=== PATIENT | male | born 1995 | race Caucasian/White ===

== ENCOUNTER 2018-02-09 23:24 | Inpatient (IN) | payer OTHER ==
[2018-02-09 23:24] VITALS: O2SAT 100
[2018-02-09] MEDS ORDERED: ceFAZolin 2 GM PREMIX 50 ML ONE (23:32)
[2018-02-09] MEDS ORDERED: PROPOFOL 1000 MG/100 ML INJ 100 ML ONE (23:32)
[2018-02-09] MEDS ORDERED: DIPHTH/TETANUS/ACEL PERTUSSIS (BOOSTER) 0.5 ML VIAL/PFS IM ONE ×2 (23:32→23:49)
[2018-02-09 23:35] VITALS: O2SAT 100
[2018-02-09] MEDS ORDERED: ceFAZolin 2 GM/DEX PREMIX 50 ML IV STA (23:45)
[2018-02-09] MEDS ORDERED: SODIUM CHLOR 0.9% 1000 ML INJ 1,000 ML IV ONE (23:45)
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
[2018-02-09 23:51] LABS: BASOPHIL # 0.1 TH/MM3 (0-0.2); EOSINOPHIL # 0.1 TH/MM3 (0-0.4); EOSINOPHIL % 1.4 % (0.0-4.0); HEMATOCRIT 40.9 % (39.0-51.0); HEMOGLOBIN 13.6 GM/DL (13.0-17.0); LYMPH % 22.8 % (9.0-44.0); LYMPHOCYTE # 2.3 TH/MM3 (1.0-4.8); MEAN CELL VOLUME 98.3 FL (80.0-100.0); MEAN CORPUSCULAR HEMOGLOBIN 32.8 PG (27.0-34.0); MEAN CORPUSCULAR HGB CONC 33.4 % (32.0-36.0); MEAN PLATELET VOLUME 9.3 FL (7.0-11.0); MONO % 6.2 % (0.0-8.0); MONOCYTE # 0.6 TH/MM3 (0-0.9); NEUT % 68.6 % (16.0-70.0); PLATELET COUNT 234 TH/MM3 (150-450); RED BLOOD COUNT 4.16 MIL/MM3 (4.50-5.90); RED CELL DISTRIBUTION WIDTH 14.4 % (11.6-17.2); WHITE BLOOD COUNT 10.1 TH/MM3 (4.0-11.0)
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
[2018-02-10] VITALS (20 sets, daily range): BP systolic 107–124; BP diastolic 69–78; PULSE 57–107; RESP 14–16; TEMP 99–101.9; O2SAT 99–100
[2018-02-10] LABS: PROTHROMBIN TIME - PATIENT 9.7 SEC (9.8-11.6)
[2018-02-10] MEDS: SODIUM CHLOR 0.9% 1000 ML INJ 1,000 ML IV SCH ×3 (00:02→12:42)
[2018-02-10] MEDS ORDERED: IOHEXOL 350 MG/ML 10 ML VIAL (for RAD DIAG) IVCONTRAST ONE ×2 (00:06→04:34)
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
[2018-02-10] MEDS ORDERED: MAGNESIUM HYDROXIDE SUSP 30 ML CUP PO PRN (00:15)
[2018-02-10] MEDS ORDERED: PROPOFOL 1000 MG/100 ML INJ 100 ML IV PRN (00:15)
[2018-02-10] MEDS ORDERED: ONDANSETRON HCL 4 MG/2 ML VIAL IV PUSH PRN (00:15)
[2018-02-10] MEDS ORDERED: LORazepam 2 MG/ML VIAL IV PUSH PRN (00:15)
[2018-02-10] MEDS ORDERED: CHLORHEXIDINE GLUCONATE 2 % 1 PACK (2 CLOTHS) TOP PRN (00:15)
[2018-02-10] MEDS ORDERED: NURSING INFORMATION XX SCH (00:15)
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
[2018-02-10] MEDS: CHLORHEXIDINE GLUCONATE 2 % 1 PACK (2 CLOTHS) TOP SCH (01:26)
[2018-02-10] MEDS ORDERED: MAGNESIUM SULFATE INJ 4 GM in SODIUM CHLORIDE 0.9% INJ 92 ML IV PRN (01:45)
[2018-02-10] MEDS ORDERED: POTASSIUM PHOSPHATE INJ 30 MMOL in SODIUM CHLOR 0.9% 250 ML INJ 250 ML IV PRN (01:45)
[2018-02-10] MEDS ORDERED: POTASSIUM CHLORIDE 25 MEQ EFFERVESCENT TAB PO PRN (01:45)
[2018-02-10] MEDS ORDERED: SODIUM PHOSPHATE INJ 30 MMOL in SODIUM CHLOR 0.9% 250 ML INJ 240 ML IV PRN (01:45)
[2018-02-10] MEDS ORDERED: MAGNESIUM OXIDE 400 MG TAB PO PRN (01:45)
[2018-02-10] MEDS ORDERED: RESP: ALBUTEROL 2.5 MG/3 ML NEB (PRN) NEB (01:45)
[2018-02-10] MEDS ORDERED: POTASSIUM PHOSPHATE MONOBASIC 500 MG TAB PO/TUBE PRN (01:45)
[2018-02-10] MEDS ORDERED: levETIRAcetam INJ 500 MG in SODIUM CHLORIDE 0.9% INJ 100 ML IV ONE (01:45)
[2018-02-10] MEDS ORDERED: POTASSIUM CHLOR 40 MEQ PREMIX 100 ML IV PRN ×2 (01:45)
[2018-02-10] MEDS ORDERED: POTASSIUM PHOSPHATE MONOBASIC 500 MG TAB PO PRN (01:45)
[2018-02-10] MEDS ORDERED: MAGNESIUM SULFATE INJ 2 GM in SODIUM CHLORIDE 0.9% INJ 96 ML IV PRN (01:45)
[2018-02-10] MEDS ORDERED: POTASSIUM CHLOR 20 MEQ PREMIX 100 ML IV PRN ×2 (01:45)
[2018-02-10 03:08] LABS: PHOSPHORUS 2.6 MG/DL (2.5-4.9)
[2018-02-10 03:09] LABS: MAGNESIUM 1.9 MG/DL (1.5-2.5)
[2018-02-10] MEDS: THIAMINE INJ 100 MG in SODIUM CHLORIDE 0.9% INJ 100 ML IV SCH (03:20)
[2018-02-10 03:38] LABS: BILIRUBIN, URINE NEG (NEG); BLOOD, URINE SMALL (NEG); GLUCOSE,URINE NEG (NEG); KETONE, URINE NEG (NEG); MUCUS URINE FEW /lpf (OCC); NITRITE,URINE NEG (NEG); PH, URINE 5.5 (5.0-8.5); URINE COLOR LIGHT-YELLOW (YELLW/STRAW); URINE LEUKOCYTE ESTERASE NEG (NEG)
[2018-02-10] MEDS: PROPOFOL 1000 MG/100 ML IV PRN ×4 (04:45→14:00)
--- NOTE | 2018-02-10 04:50 | RADRPT ---
EXAM DATE/TIME: 02/10/2018 04:28 [facility] COMPARISON: CT BRAIN W/O CONTRAST, February 09, 2018, 23:41. INDICATIONS : Hemorrhage. RADIATION DOSE: 46.79 CTDIvol (mGy) MEDICAL HISTORY : Non-responsive. SURGICAL HISTORY : Non-responsive. ENCOUNTER: Initial ACUITY: 1 day PAIN SCALE: Non-responsive LOCATION: cranial TECHNIQUE: Multiple contiguous axial images were obtained of the head. Using automated exposure control and adj ustment of the mA and/or kV according to patient size, radiation dose was kept as low as reasonably a chievable to obtain optimal diagnostic quality images. DICOM format image data is available electro nically for review and comparison. FINDINGS: CEREBRUM: There again is a tiny amount of hemorrhage in the left sylvian fissure. POSTERIOR FOSSA: There is a mild soft tissue prominence in the prepatellar cistern and some increased density to the t entorium could be hiding a small subdural hematoma. No significant mass or mass effect is noted.. EXTRACRANIAL: The visualized portion of the orbits is intact. Minimal sinus disease SKULL: The calvaria is intact. No evidence of skull fracture. CONCLUSION: Very similar exam with minimal hemorrhage in the left sylvian fissure. Some increased density anterio r to the daniel could be a small area of hemorrhage. CTA is planned. Jacobo Broderick MD on February 10, 2018 at 4:47 Board Certified Radiologist. This report was verified electronically.
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
[2018-02-10] MEDS: fentaNYL 2,500 MCG/NS 250 ML IV PRN (05:00)
[2018-02-10] MEDS: MULTIVITAMIN INJ 10 ML, FOLIC ACID INJ 1 MG in SODIUM CHLORID 0.9% 500 ML INJ 500 ML IV SCH (05:30)
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
[2018-02-10] MEDS: FAMOTIDINE 20 MG/2 ML VIAL IV PUSH SCH ×2 (08:56→20:55)
[2018-02-10] MEDS: DOCUSATE SODIUM 50 MG/SENNA 8.6 MG TAB PO SCH ×2 (08:57→20:56)
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
[2018-02-10] MEDS: levETIRAcetam INJ 500 MG in SODIUM CHLORIDE 0.9% INJ 100 ML IV SCH ×3 (12:42)
[2018-02-10] MEDS ORDERED: DEXMEDETOMIDINE 200 MCG in NS 48 ML IV PRN (16:15)
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
[2018-02-10] MEDS: RESP: ALBUTEROL 2.5 MG/IPRATROPIUM 0.5 MG NEB (SCH) NEB (22:25)
[2018-02-11] VITALS (16 sets, daily range): BP systolic 106–138; BP diastolic 56–80; PULSE 55–105; RESP 14–22; TEMP 99–99.3; O2SAT 96–100
[2018-02-11] MEDS: levETIRAcetam INJ 500 MG in SODIUM CHLORIDE 0.9% INJ 100 ML IV SCH ×3 (00:27→23:09)
[2018-02-11] MEDS: PROPOFOL 1000 MG/100 ML IV PRN ×3 (00:29→11:14)
[2018-02-11] MEDS: fentaNYL 2,500 MCG/NS 250 ML IV PRN (01:29)
[2018-02-11] MEDS: THIAMINE INJ 100 MG in SODIUM CHLORIDE 0.9% INJ 100 ML IV SCH (01:29)
[2018-02-11] MEDS: MULTIVITAMIN INJ 10 ML, FOLIC ACID INJ 1 MG in SODIUM CHLORID 0.9% 500 ML INJ 500 ML IV SCH (02:57)
[2018-02-11] MEDS: CHLORHEXIDINE GLUCONATE 2 % 1 PACK (2 CLOTHS) TOP SCH (03:12)
[2018-02-11] MEDS: RESP: ALBUTEROL 2.5 MG/IPRATROPIUM 0.5 MG NEB (SCH) NEB ×4 (03:42→20:34)
[2018-02-11 03:49] LABS: AUTOMATED NEUTROPHIL # 5.4 TH/MM3 (1.8-7.7); BASOPHIL % 0.6 % (0.0-2.0); EOSINOPHIL # 0.2 TH/MM3 (0-0.4); HEMATOCRIT 38.6 % (39.0-51.0); HEMOGLOBIN 13.2 GM/DL (13.0-17.0); LYMPH % 17.5 % (9.0-44.0); LYMPHOCYTE # 1.4 TH/MM3 (1.0-4.8); MEAN CELL VOLUME 96.4 FL (80.0-100.0); MEAN CORPUSCULAR HEMOGLOBIN 32.9 PG (27.0-34.0); MEAN CORPUSCULAR HGB CONC 34.1 % (32.0-36.0); MEAN PLATELET VOLUME 9.2 FL (7.0-11.0); NEUT % 67.9 % (16.0-70.0); PLATELET COUNT 160 TH/MM3 (150-450)
[2018-02-11 04:13] LABS: BICARBONATE 25.6 MEQ/L (21.0-32.0); CALCIUM 7.9 MG/DL (8.5-10.1); CREATININE 0.63 MG/DL (0.60-1.30)
[2018-02-11] MEDS: SODIUM CHLOR 0.9% 1000 ML INJ 1,000 ML IV SCH (06:02)
--- NOTE | 2018-02-11 06:04 | RADRPT ---
EXAM DATE/TIME: 02/11/2018 04:39 [facility] COMPARISON: No previous studies available for comparison. INDICATIONS : Shortness of breath. MEDICAL HISTORY : None. SURGICAL HISTORY : None. ENCOUNTER: Subsequent ACUITY: 3 days PAIN SCORE: Non-responsive. LOCATION: Bilateral chest FINDINGS: A single view of the chest demonstrates the lungs to be symmetrically aerated without evidence of mas s, infiltrate or effusion. The endotracheal tube, nasogastric tube in good position The cardiomediast inal contours are unremarkable. Osseous structures are intact. CONCLUSION: Normal examination. Lungs are clear Jacobo Broderick MD on February 11, 2018 at 6:02 Board Certified Radiologist. This report was verified electronically.
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
[2018-02-11] MEDS: FAMOTIDINE 20 MG/2 ML VIAL IV PUSH SCH (10:31)
[2018-02-11] MEDS: DOCUSATE SODIUM 50 MG/SENNA 8.6 MG TAB PO SCH ×2 (10:31→21:00)
[2018-02-11] MEDS ORDERED: HALOPERIDOL LACTATE 5 MG/ML AMP IV ONE (12:15)
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
[2018-02-12] VITALS (9 sets, daily range): BP systolic 106–120; BP diastolic 59–80; PULSE 56–76; RESP 14–18; TEMP 97.7–98.7; O2SAT 98–100
[2018-02-12] MEDS: THIAMINE INJ 100 MG in SODIUM CHLORIDE 0.9% INJ 100 ML IV SCH (02:24)
[2018-02-12] MEDS: SODIUM CHLOR 0.9% 1000 ML INJ 1,000 ML IV SCH (03:10)
[2018-02-12] MEDS: CHLORHEXIDINE GLUCONATE 2 % 1 PACK (2 CLOTHS) TOP SCH (03:11)
[2018-02-12] MEDS: RESP: ALBUTEROL 2.5 MG/IPRATROPIUM 0.5 MG NEB (SCH) NEB ×4 (03:32→20:37)
[2018-02-12] MEDS: HALOPERIDOL LACTATE 5 MG/ML AMP IV PRN ×4 (03:37→18:40)
[2018-02-12] MEDS: MULTIVITAMIN INJ 10 ML, FOLIC ACID INJ 1 MG in SODIUM CHLORID 0.9% 500 ML INJ 500 ML IV SCH (05:19)
[2018-02-12 06:36] LABS: AUTOMATED NEUTROPHIL # 6.1 TH/MM3 (1.8-7.7); BASOPHIL % 0.5 % (0.0-2.0); EOSINOPHIL # 0.1 TH/MM3 (0-0.4); EOSINOPHIL % 1.6 % (0.0-4.0); LYMPH % 11.6 % (9.0-44.0); LYMPHOCYTE # 0.9 TH/MM3 (1.0-4.8); MEAN CELL VOLUME 96.6 FL (80.0-100.0); MEAN CORPUSCULAR HEMOGLOBIN 33.1 PG (27.0-34.0); MEAN CORPUSCULAR HGB CONC 34.2 % (32.0-36.0); MEAN PLATELET VOLUME 9.9 FL (7.0-11.0); MONO % 9.2 % (0.0-8.0); MONOCYTE # 0.7 TH/MM3 (0-0.9); NEUT % 77.1 % (16.0-70.0); PLATELET COUNT 165 TH/MM3 (150-450); RED BLOOD COUNT 3.93 MIL/MM3 (4.50-5.90); RED CELL DISTRIBUTION WIDTH 13.6 % (11.6-17.2)
[2018-02-12 07:00] LABS: BICARBONATE 25.2 MEQ/L (21.0-32.0); CALCIUM 8.5 MG/DL (8.5-10.1); CREATININE 0.59 MG/DL (0.60-1.30)
[2018-02-12] MEDS: DOCUSATE SODIUM 50 MG/SENNA 8.6 MG TAB PO SCH ×2 (09:53→20:17)
[2018-02-12] MEDS: QUEtiapine FUMARATE 25 MG TAB PO SCH ×2 (10:57→20:17)
[2018-02-12] MEDS: levETIRAcetam INJ 500 MG in SODIUM CHLORIDE 0.9% INJ 100 ML IV SCH (12:18)
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
[2018-02-12] MEDS: oxyCODONE/ACETAMINOPHEN 5 MG/325 MG TAB PO PRN (20:30)
[2018-02-13] VITALS (7 sets, daily range): BP systolic 100–124; BP diastolic 58–76; PULSE 59–91; RESP 14–20; TEMP 97.6–99.1; O2SAT 98–99
[2018-02-13] MEDS: levETIRAcetam INJ 500 MG in SODIUM CHLORIDE 0.9% INJ 100 ML IV SCH (00:15)
[2018-02-13] MEDS: SODIUM CHLOR 0.9% 1000 ML INJ 1,000 ML IV SCH (01:11)
[2018-02-13] MEDS: CHLORHEXIDINE GLUCONATE 2 % 1 PACK (2 CLOTHS) TOP SCH (02:56)
[2018-02-13] MEDS: MULTIVITAMIN INJ 10 ML, FOLIC ACID INJ 1 MG in SODIUM CHLORID 0.9% 500 ML INJ 500 ML IV SCH (02:56)
[2018-02-13] MEDS: RESP: ALBUTEROL 2.5 MG/IPRATROPIUM 0.5 MG NEB (SCH) NEB ×4 (03:33→21:01)
[2018-02-13] MEDS ORDERED: ONDANSETRON ODT 4 MG TAB PO PRN (07:45)
[2018-02-13 07:47] LABS: AUTOMATED NEUTROPHIL # 3.9 TH/MM3 (1.8-7.7); BASOPHIL % 0.6 % (0.0-2.0); EOSINOPHIL # 0.1 TH/MM3 (0-0.4); EOSINOPHIL % 2.7 % (0.0-4.0); HEMATOCRIT 39.4 % (39.0-51.0); HEMOGLOBIN 13.5 GM/DL (13.0-17.0); LYMPH % 15.8 % (9.0-44.0); LYMPHOCYTE # 0.8 TH/MM3 (1.0-4.8); MEAN CELL VOLUME 96.2 FL (80.0-100.0); MEAN CORPUSCULAR HEMOGLOBIN 32.9 PG (27.0-34.0); MEAN CORPUSCULAR HGB CONC 34.2 % (32.0-36.0); MEAN PLATELET VOLUME 8.8 FL (7.0-11.0); MONO % 7.6 % (0.0-8.0); MONOCYTE # 0.4 TH/MM3 (0-0.9); NEUT % 73.3 % (16.0-70.0); PLATELET COUNT 183 TH/MM3 (150-450); RED BLOOD COUNT 4.09 MIL/MM3 (4.50-5.90); RED CELL DISTRIBUTION WIDTH 13.4 % (11.6-17.2); WHITE BLOOD COUNT 5.3 TH/MM3 (4.0-11.0)
[2018-02-13 08:28] LABS: BICARBONATE 23.8 MEQ/L (21.0-32.0); CALCIUM 8.9 MG/DL (8.5-10.1); CREATININE 0.55 MG/DL (0.60-1.30)
[2018-02-13] MEDS: QUEtiapine FUMARATE 25 MG TAB PO SCH ×3 (09:15→18:09)
[2018-02-13] MEDS: DOCUSATE SODIUM 50 MG/SENNA 8.6 MG TAB PO SCH ×2 (09:15→21:20)
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
[2018-02-13] MEDS: ENOXAPARIN SODIUM 40 MG/0.4 ML SYRINGE SQ SCH (11:33)
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
[2018-02-13] MEDS: oxyCODONE/ACETAMINOPHEN 5 MG/325 MG TAB PO PRN ×2 (14:34→22:11)
[2018-02-13] MEDS ORDERED: WALKER WHEELS/F1 MIS (16:58)
[2018-02-13] MEDS: NICOTINE 14 MG/24 HR PATCH T-DERMAL SCH (18:00)
[2018-02-13] MEDS ORDERED: REMOVE OLD PATCH T-DERMAL SCH (21:00)
[2018-02-13] MEDS: levETIRAcetam 500 MG TAB PO SCH (21:20)
[2018-02-14] MEDS: MULTIVITAMIN INJ 10 ML, FOLIC ACID INJ 1 MG in SODIUM CHLORID 0.9% 500 ML INJ 500 ML IV SCH (01:40)
[2018-02-14] MEDS: CHLORHEXIDINE GLUCONATE 2 % 1 PACK (2 CLOTHS) TOP SCH (04:00)
[2018-02-14] MEDS: RESP: ALBUTEROL 2.5 MG/IPRATROPIUM 0.5 MG NEB (SCH) NEB ×2 (04:10→09:05)
[2018-02-14 05:34] LABS: AUTOMATED NEUTROPHIL # 3.6 TH/MM3 (1.8-7.7); BASOPHIL % 0.6 % (0.0-2.0); EOSINOPHIL # 0.2 TH/MM3 (0-0.4); EOSINOPHIL % 3.5 % (0.0-4.0); HEMATOCRIT 42.1 % (39.0-51.0); HEMOGLOBIN 14.3 GM/DL (13.0-17.0); MEAN CELL VOLUME 96.9 FL (80.0-100.0); MEAN CORPUSCULAR HEMOGLOBIN 32.9 PG (27.0-34.0); MEAN CORPUSCULAR HGB CONC 33.9 % (32.0-36.0); MONO % 11.1 % (0.0-8.0); MONOCYTE # 0.6 TH/MM3 (0-0.9); NEUT % 66.8 % (16.0-70.0); PLATELET COUNT 229 TH/MM3 (150-450); RED BLOOD COUNT 4.35 MIL/MM3 (4.50-5.90); RED CELL DISTRIBUTION WIDTH 13.6 % (11.6-17.2); WHITE BLOOD COUNT 5.4 TH/MM3 (4.0-11.0)
[2018-02-14 05:59] LABS: BICARBONATE 27.2 MEQ/L (21.0-32.0); CALCIUM 9.1 MG/DL (8.5-10.1); CREATININE 0.71 MG/DL (0.60-1.30)
[2018-02-14 08:00] VITALS: BP 117/72; PULSE 87; RESP 20; TEMP 98.6
[2018-02-14] MEDS: DOCUSATE SODIUM 50 MG/SENNA 8.6 MG TAB PO SCH (09:00)
[2018-02-14] MEDS: NICOTINE 14 MG/24 HR PATCH T-DERMAL SCH (09:00)
[2018-02-14] MEDS: levETIRAcetam 500 MG TAB PO SCH (09:00)
[2018-02-14] MEDS: QUEtiapine FUMARATE 25 MG TAB PO SCH (09:00)
[2018-02-14] MEDS ORDERED: OXYC1TAB63 PO (09:21)
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
[2018-02-14] MEDS: ENOXAPARIN SODIUM 40 MG/0.4 ML SYRINGE SQ SCH (10:39)
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
== END 2018-02-14 14:16 | disposition home or self-care (01) | DRG 963 ==
LOC: NEPI 23:24 → EDBD 23:55 → NEDA 23:55 → N03B 02-10 00:05
PROVIDERS: ADMIT Surgery Trauma Surgery; ATTEND Surgery Trauma Surgery
PROC: 5A1935Z Respiratory Ventilation, Less than 24 Consecutive Hours (ICD-10-PCS; principal; 2018-02-10)
PROC: 0BP1XDZ Removal of Intraluminal Device from Trachea, External Approach (ICD-10-PCS; 2018-02-11)
DX: S06.6X9A Traumatic subarachnoid hemorrhage with loss of consciousness of unspecified duration, initial encounter (principal); J96.00 Acute respiratory failure, unspecified whether with hypoxia or hypercapnia; S27.321A Contusion of lung, unilateral, initial encounter; R56.9 Unspecified convulsions; E87.0 Hyperosmolality and hypernatremia; D68.8 Other specified coagulation defects; F19.239 Other psychoactive substance dependence with withdrawal, unspecified; S00.531A Contusion of lip, initial encounter; R40.2431 Glasgow coma scale score 3-8, in the field [EMT or ambulance]; F10.129 Alcohol abuse with intoxication, unspecified; T07.XXXA Unspecified multiple injuries, initial encounter; S00.532A Contusion of oral cavity, initial encounter; Y90.6 Blood alcohol level of 120-199 mg/100 ml; R00.0 Tachycardia, unspecified; F14.10 Cocaine abuse, uncomplicated; S40.211A Abrasion of right shoulder, initial encounter; R45.1 Restlessness and agitation; R41.3 Other amnesia; Y92.410 Unspecified street and highway as the place of occurrence of the external cause; V89.2XXA Person injured in unspecified motor-vehicle accident, traffic, initial encounter; Z91.19 Patient's noncompliance with other medical treatment and regimen; Z23 Encounter for immunization
CPT/HCPCS: 36600; 51702; 70450; 70486; 70496; 70498; 71045; 71260; 72125; 72129; 72132; 72170; 74177; 80048; 80307; 81001; 82805; 83735; 84100; 85025; 85384; 85610; 85730; 86850; 86900; 86901; 86920; 87641; 90471; 90715; 94002; 94003; 94640; 94664; 94770; 95819; 96365; 96368; 96375; 99291; G0390; J0690; J1630; J1650; J1953; J2405; J3010; J3411; J7030; J7040; Q9967

== ENCOUNTER 2018-06-11 15:05 | Inpatient (IN) ==
[2018-06-11 16:13] LABS: Baso # (Auto) 0.1 th/mm3 (0.0-0.2); Baso % (Auto) 1.2 % (0.0-2.0); Eos # (Auto) 0.1 th/mm3 (0.0-0.4); Eos % (Auto) 1.5 % (0.0-4.0); Hematocrit 42.4 % (39.0-51.0); Hemoglobin 14.6 gm/dL (13.0-17.0); Lymph # (Auto) 1.9 th/mm3 (1.0-4.8); Lymph % (Auto) 33.8 % (9.0-44.0); Mean Corpuscular HGB Conc 34.5 % (32.0-36.0); Mean Corpuscular Hemoglobin 34.4 pg (27.0-34.0); Mean Corpuscular Volume 99.7 fL (80.0-100.0); Mean Platelet Volume 9.4 fL (7.0-11.0); Mono # (Auto) 0.5 th/mm3 (0.0-0.9); Mono % (Auto) 9.5 % (0.0-8.0); Platelet Count 242 th/mm3 (150-450); Red Blood Count 4.26 mil/mm3 (4.50-5.90); Red Cell Distribution Width 15.1 % (11.6-17.2); White Blood Count 5.5 th/mm3 (4.0-11.0)
[2018-06-11 16:34] LABS: Anion Gap 6 meq/L (5-15)
[2018-06-11 16:47] LABS: Alanine Aminotransferase 16 U/L (12-78); Albumin 4.2 g/dL (3.4-5.0); Alkaline Phosphatase 46 U/L (45-117); Aspartate Aminotransferase 7 U/L (15-37); Blood Urea Nitrogen 10 mg/dL (7-18); Calcium 8.8 mg/dL (8.5-10.1); Carbon Dioxide 28.8 meq/L (21.0-32.0); Chloride 108 meq/L (98-107); Glomerular Filtration Rate Greater Than 89 mL/min (>89); Glucose,Random 71 mg/dL (74-106); Sodium 143 meq/L (136-145); Thyroid Stimulating Hormone 0.548 uIU/mL (0.358-3.740); Total Protein 7.6 g/dL (6.4-8.2)
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
[2018-06-11 17:45] LABS: Amphetamine Screen,Urine Neg (Neg); Barbiturate Screen,Urine Neg (Neg); Cannabinoid Screen,Urine Neg (Neg); Cocaine Screen,Urine Pos (Neg)
[2018-06-11 17:51] LABS: Opiate Screen,Urine Neg (Neg)
[2018-06-12] MEDS ORDERED: Bisacodyl 10 MG Supp RECTAL PRN (08:17)
[2018-06-12] MEDS ORDERED: Aluminum/Magnesium/Simethacone Susp 30 ML UDC PO PRN (08:17)
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
[2018-06-12] MEDS: Senna/Docusate Sodium 8.6/50 MG Tablet PO SCH ×2 (13:32→21:12)
[2018-06-12] MEDS: Divalproex 250 MG DR Tablet PO SCH ×2 (13:32→21:11)
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
[2018-06-13] MEDS: Senna/Docusate Sodium 8.6/50 MG Tablet PO SCH ×2 (10:43→21:11)
[2018-06-13] MEDS: Divalproex 250 MG DR Tablet PO SCH ×2 (10:43→21:11)
[2018-06-13 13:21] LABS: Cholesterol 107 mg/dL (120-200)
[2018-06-13 13:23] LABS: Anion Gap 6 meq/L (5-15); Blood Urea Nitrogen 18 mg/dL (7-18); Calcium 8.8 mg/dL (8.5-10.1); Chloride 104 meq/L (98-107); Glomerular Filtration Rate Greater Than 89 mL/min (>89); Glucose,Random 110 mg/dL (74-106); Potassium 4.2 meq/L (3.5-5.1); Sodium 139 meq/L (136-145)
[2018-06-13 13:24] LABS: Chol/HDL Ratio 2.21 Ratio; HDL Cholesterol 48.3 mg/dL (40.0-60.0); Triglycerides 406 mg/dL (42-150)
--- NOTE | 2018-06-13 13:25 | P.PNPSY ---
Subjective Remarks: Reviewed electronic medical records and discussed case with staff. Follow-up was conducted in the exam room with MELISSA Keane present. Patient states that he feels "pretty good". States that he has been sleeping too well but last night he slept most of the night. He reports he has a good appetite. He is denying any side effects. His mood is good his affect is euthymic. He states he is a little anxious about going home and reports that his suicidal statements were an effort to gain attention from his parents. Mental Status Examination Appearance: Appropriate Consciousness: Alert Orientation: x4 Motor Activity: Other (No motor abnormalities noted) Speech: Unremarkable Language: Adequate Fund of Knowledge: Adequate Attention and Concentration: Adequate Memory: Unremarkable Mood: Other (Depressed "off and on") Affect: Anxious Thought Process & Associations: Intact Thought Content: Appropriate Hallucination Type: None Delusion Type: None Suicidal Ideation: No (Unclear whether patient is reliable to contract for safety) Suicidal Plan: No Suicidal Intention: No Homicidal Ideation: No Homicidal Plan: No Homicidal Intention: No Insight: Poor Judgment: Impulsive Assessment and Plan - Assessment (1) Adjustment disorder Code(s): F43.20 - Adjustment disorder, unspecified Status: Acute - Plan Plan: Patient will be reevaluated Friday by the attending psychiatrist. Continue with current treatment plan. Justification for Continued Inpatient Stay: Moving this patient to a less restrictive environment would likely result in decompensation. (1) Adjustment disorder Qualifiers: Adjustment disorder type: with conduct disturbance Qualified Code(s): F43.24 - Adjustment disorder with disturbance of conduct
[2018-06-13 14:52] LABS: Hemoglobin A1c 4.7 % (4.3-6.0)
[2018-06-14] MEDS: Divalproex 250 MG DR Tablet PO SCH ×2 (08:42→20:26)
[2018-06-14] MEDS: Senna/Docusate Sodium 8.6/50 MG Tablet PO SCH ×2 (08:42→20:26)
--- NOTE | 2018-06-14 12:41 | P.PNPSY ---
Subjective Chief Complaint: Adjustment disorder Remarks: Reviewed electronic medical records and discussed case with staff. Follow-up was conducted in the hallway with MELISSA Keane present. Patient is very pleasant and engaging. States that he is sleeping and eating well. He is interactive with others and participates in activities. He denies feeling depressed. Demonstrates no behavioral concerns. Review of Systems All other systems reviewed negative except as stated in HPI Mental Status Examination Appearance: Appropriate Consciousness: Alert Orientation: x4 Motor Activity: Other (No motor abnormalities noted) Speech: Unremarkable Language: Adequate Fund of Knowledge: Adequate Attention and Concentration: Adequate Memory: Unremarkable Mood: Appropriate Affect: Appropriate Thought Process & Associations: Intact Thought Content: Appropriate Hallucination Type: None Delusion Type: None Suicidal Ideation: No (Unclear whether patient is reliable to contract for safety) Suicidal Plan: No Suicidal Intention: No Homicidal Ideation: No Homicidal Plan: No Homicidal Intention: No Insight: Poor Judgment: Impulsive Assessment and Plan - Assessment (1) Adjustment disorder Code(s): F43.20 - Adjustment disorder, unspecified Status: Acute - Plan Plan: Patient will be reevaluated Friday by the attending psychiatrist. Continue with current treatment plan. Justification for Continued Inpatient Stay: Moving patient to a less restrictive environment may result in his decompensation.
[2018-06-15] MEDS: Senna/Docusate Sodium 8.6/50 MG Tablet PO SCH ×2 (09:06→23:44)
[2018-06-15] MEDS: Divalproex 250 MG DR Tablet PO SCH ×2 (09:06→20:37)
--- NOTE | 2018-06-15 13:54 | P.PNPSY ---
Subjective Chief Complaint: Adjustment disorder Remarks: Patient seen and examined with nurse. Chart reviewed. Case discussed with nursing staff. No behavioral issues noted overnight. Case discussed with counselor. Counselor has obtained collateral information from patient's mother who reportedly is comfortable with the patient's discharge home soon and is reportedly requesting a Friday morning discharge. On my examination today, the patient says that he feels calmer. He denies any SI or HI. He denies any AVH. Sleep and appetite are reportedly fair. Mood is okay. Denies any side effects from medications. No physical complaints but the patient is requesting a nicotine patch saying that he smokes between a pack and a pack and a half of cigars daily. Vital Signs Temp Pulse Resp BP Pulse Ox 06/15/18 05:54 97.9 F 77 16 87/62 L 97 Intake and Output 06/15/18 06/15/18 06/15/18 06:59 14:59 22:59 Intake Total 360 / 360 Balance 360 / 360 Intake: Oral 360 / 360 Labs reviewed. I note that the patient has significant hypertriglyceridemia. The patient denies any known history of elevated triglycerides and denies any family history of same. I have recommended that he follow up with primary care doctor on an outpatient basis. Review of Systems All other systems reviewed negative except as stated in HPI Mental Status Examination Appearance: Appropriate Consciousness: Alert Orientation: x4 Motor Activity: Other (No abnormal motor movements noted) Speech: Unremarkable Language: Adequate Fund of Knowledge: Adequate Attention and Concentration: Adequate Memory: Unremarkable Mood: Appropriate Affect: Appropriate Thought Process & Associations: Intact Thought Content: Appropriate Hallucination Type: None Delusion Type: None Suicidal Ideation: No Suicidal Plan: No Suicidal Intention: No Homicidal Ideation: No Homicidal Plan: No Homicidal Intention: No Insight: Poor Judgment: Impulsive Assessment and Plan - Assessment (1) Adjustment disorder Code(s): F43.20 - Adjustment disorder, unspecified Status: Acute - Plan Plan: Continue Depakote as ordered. Patient feels that this medication is helping him. Check a Depakote level, ammonia level, and LFTs in the morning. Add nicotine patch. Continue to monitor on the inpatient unit. Continue other medications and care as ordered. Justification for Continued Inpatient Stay: Need for therapeutic drug level monitoring. Discharge Planning: Anticipate discharge tomorrow, Friday. (1) Adjustment disorder Qualifiers: Adjustment disorder type: with conduct disturbance Qualified Code(s): F43.24 - Adjustment disorder with disturbance of conduct
[2018-06-16 07:22] LABS: Albumin 3.8 g/dL (3.4-5.0)
[2018-06-16 07:24] LABS: Total Protein 6.8 g/dL (6.4-8.2)
--- NOTE | 2018-06-16 08:15 | P.DSPSY ---
Psychiatry Discharge Summary Inpatient Psychiatric care?: Yes Advance Directives: No Mental Health Advance Directive: No Health Care Proxy: No - Admission Admission Date: June 12, 2018 08:17 - Admission Diagnosis (1) Adjustment disorder Code(s): F43.20 - Adjustment disorder, unspecified Brief History: The patient is a 22 year-old man, domiciled in [facility] with his mother, single, unemployed, with a psychiatric history of poor impulse control, aggressive behavior related with TBI, cocaine and alcohol use disorder , no previous psychiatric hospitalizations, no previous suicide attempts, who presents to the emergency department under [facility] Act by his clinical psychologist, Dr. Herrera. [place] Act reports patient has major depressive disorder with suicidal ideation with history of TBI. Patient states he told his psychologist that he occasionally thinks about suicide to get attention from his parents. Chart was reviewed. Collateral information from Mirta, his mother, was obtained. He clarifies that the patient has been quite aggressive, impulsive, and having episodic psychosis. She says that the patient at times talks to himself, make no sense, becomes very defiant which is out of character for him. In the last weeks he has been repeating over and over that he is going to commit suicide. Yesterday she was quite afraid that she will do it. She reports that she does not feel safe with him at home. She does report that he has been using cocaine and alcohol. On my psychiatric evaluation today I find a patient that is calm, cooperative. Patient reports that he has been quite stressed, he says that since the accident he is not himself, has been unable to function at the level he was functioning before, has been unable to find a job he feels very frustrated. At the same time he feels that his parents are not understanding him. The patient reports that he is feeling depressed, with hopelessness, helplessness, quite pessimistic about his future and frequent suicidal ideation, even though he denies suicidal ideation at this moment. The patient is fully oriented 3, no gross cognitive impairment, no fluctuation of consciousness at the moment. PPHx: No previous psychiatric history PHMx: History of TBI Substance Hx:, Patient reports the use of cocaine, and occasionally alcohol FAmily Hx: No family psychiatric history Social Hx: The patient was born and raised in [place], he lives in [facility], he lives with his mother, his single, and no kids, unemployed Tobacco Use In Past 30 Days: Yes How Often Do You Have a Drink Containing Alcohol: 4 or more times a week Hospital Course: Patient was admitted to a locked, inpatient psychiatric unit. Appropriate precautions were in place throughout patient's hospital stay. Patient was seen and examined on the unit by psychiatry and also visited by counselor. Psychotropic medications were adjusted. Patient tolerated medication changes well without side effects. Patient had improvement in presenting psychiatric symptomatology. There was no evidence of any suicidality or homicidality on the inpatient unit. There was no evidence of self-care deficit from mental illness. Collateral information was obtained from the patient's mother. On the day of discharge: Patient seen and examined. Chart reviewed. Case discussed with nursing staff. No behavioral issues noted overnight. Case discussed in treatment team. Per counselor, patient's mother is comfortable with the patient returning home today. On my examination today, the patient is requesting discharge from the inpatient psychiatric unit today. He denies any suicidal or homicidal ideation, intent or plan. Mood is good, and I can elicit no depressive or hypomanic/manic symptoms. He denies any audiovisual hallucinations. Denies any command auditory hallucinations to hurt self/ others. I can elicit no paranoia, no ideas of reference, no feelings of thought manipulation, no other delusional material. He denies side effects from medications. We did discuss Depakote and ammonia levels drawn this morning. The patient's ammonia level is slightly elevated with no evidence of hyperammonemic encephalopathy. The patient's Depakote level is somewhat low. I have offered to the patient to titrate the Depakote dose to try to bring level within therapeutic range, but since the patient is clinically improved we agreed to continue with current dose for now. Likewise, regarding the ammonia level, since the patient has no signs of hyperammonemic encephalopathy I will hold off on initiating an agent such as lactulose at this time. I have recommended that the patient follow up with his outpatient provider in regards to both of these issues. No physical complaints. Weighing the relevant factors and based on the available evidence, I bankruptcy judge that the patient no longer meets criteria for involuntary psychiatric hospitalization. There is no evidence of imminent risk of harm to self or others, nor is there evidence of self-care deficit from mental illness to substantiate ongoing involuntary psychiatric hospitalization. There are no acute risk factors for self-harm or violence: No current suicidal or homicidal ideation, no depressive symptoms, no impairment in reality construction, no substance intoxication. We will bolster patient's protective factors by referring him for outpatient mental health care. Psychiatric follow-up as arranged by counselor. Patient is also to follow up with primary care. I have counseled the patient to abstain from substances of abuse. I have counseled the patient to return to the psychiatric emergency room for any concerning symptoms as part of a general safety plan. - Discharge Discharge Date: 06/16/18 - Discharge Diagnosis (1) Adjustment disorder Diagnosis: Principal (resolved) Code(s): F43.20 - Adjustment disorder, unspecified Status: Resolved Discharge Disposition: Home - Discharge Instructions Discharge Diet: Regular Diet Activities You Can Perform: Weight Bearing As Tolerat - Discharge Time <= 30 minutes Mental Status Examination Appearance: Appropriate Consciousness: Alert Orientation: x4 Motor Activity: Other (No motor abnormalities noted) Speech: Unremarkable Language: Adequate Fund of Knowledge: Adequate Attention and Concentration: Adequate Memory: Unremarkable Mood: Appropriate Affect: Appropriate Thought Process & Associations: Intact Thought Content: Appropriate Hallucination Type: None Delusion Type: None Suicidal Ideation: No Suicidal Plan: No Suicidal Intention: No Homicidal Ideation: No Homicidal Plan: No Homicidal Intention: No Mental Status Exam Remarks: Insight and judgment are perhaps fair to poor, likely chronically so Discharge/Advance Care Plan - Results Vital Signs: Last Vital Signs Temp 97.9 F 06/16/18 05:50 Pulse 87 06/16/18 05:50 Resp 17 06/16/18 05:50 BP 99/62 L 06/16/18 05:50 Pulse Ox 97 06/16/18 05:50 Lab Results: Abnormal Lab Results 06/16/18 06/16/18 06:20 06:20 Total Bilirubin 0.2 Direct Bilirubin 0.1 Indirect Bilirubin 0.1 AST 11 L ALT 18 Alkaline Phosphatase 40 L Ammonia 44 H Total Protein 6.8 D Albumin 3.8 Valproic Acid 32 L Laboratory Results Hemoglobin A1c 4.7 % (4.3-6.0) 06/13/18 12:06 Triglycerides 406 mg/dL (42-150) H 06/13/18 12:06 Cholesterol 107 mg/dL (120-200) L 06/13/18 12:06 LDL Cholesterol, Calc mg/dL (0-99) 06/13/18 12:06 HDL Cholesterol 48.3 mg/dL (40.0-60.0) 06/13/18 12:06 TSH 0.548 uIU/mL (0.358-3.740) 06/11/18 15:21 Valproic Acid 32 mcg/mL (50-100) L 06/16/18 06:20 Summary of Procedures: None done Pending Results: None - Medications Number of antipsychotic medications at discharge: 0 - Discharge Care Plan Goals to Promote Your Health: * To prevent worsening of your condition and complications * To maintain your health at the optimal level Directions to Meet Your Goals: Take your medications as prescribed Follow your dietary instruction Follow activity as directed Keep your appointments as scheduled Take your immunizations and boosters as scheduled If your symptoms worsen call your PCP, if no PCP go to Urgent Care Center or Emergency Room For 28/04 questions related to your inpatient stay or results of tests pending at discharge, please contact Dr. Edison Park MD at Smoking is Dangerous to Your Health. Avoid second hand smoking (1) Adjustment disorder Qualifiers: Adjustment disorder type: with conduct disturbance Qualified Code(s): F43.24 - Adjustment disorder with disturbance of conduct (1) Adjustment disorder Qualifiers: Adjustment disorder type: with conduct disturbance Qualified Code(s): F43.24 - Adjustment disorder with disturbance of conduct
[2018-06-16] MEDS: Divalproex 250 MG DR Tablet PO SCH (09:46)
[2018-06-16] MEDS: Senna/Docusate Sodium 8.6/50 MG Tablet PO SCH (09:47)
== END 2018-06-16 12:00 | disposition home or self-care (01) ==
LOC: NEPJ 15:05 → NEDA 06-12 08:17 → H260 06-12 10:02
PROVIDERS: ADMIT Psychiatry & Neurology Psychiatry; ATTEND Psychiatry & Neurology Psychiatry